=== PATIENT | male | born 1970 | race Caucasian/White ===

== ENCOUNTER 2021-05-09 19:19 | Emergency (ER) | payer OTHER, SELFPAY ==
--- NOTE | ~2021-05-09 | XR_ITS ---
EXAMINATION: XR FOOT, LEFT CLINICAL INFORMATION: Left foot injury and pain COMPARISON: None TECHNIQUE: AP, lateral, and oblique views of the left foot. FINDINGS: There is soft tissue swelling around the distal phalanx of the first toe with associated fracture with medial displacement of a large fragment. The bones and soft tissues are otherwise normal. No fracture. Alignment is anatomic. Joint spaces are maintained. XR/XR foot LT min 3V IMPRESSION: Fracture distal phalanx first toe.
[2021-05-09 21:34] VITALS: BP 129/89; PULSE 71; RESP 20; TEMP 36.8; O2SAT 98; BMI 36.0
--- NOTE | 2021-05-09 22:47 | ED.LOWEXIN ---
HPI - Extremity Injury (Lower) General Chief Complaint: Extremity Injury, Lower Stated Complaint: Left foot injury Time Seen by Provider: 05/09/21 22:19 Source: patient Mode of arrival: ambulatory History of Present Illness HPI Narrative: States radha blackmon fell on top of his left foot II p.m. has some swelling and bruising on top of the midfoot. Denies any injury to the ankle or toes. MD complaint: foot injury Onset (ago): minute(s) Injury: Left: foot Place: home Severity: mild Relieving factors: immobilization Exacerbating factors: palpation Context: direct blow Treatments prior to arrival: cold therapy Related Data Allergies Allergy/AdvReac Type Severity Reaction Status Date / Time No Known Allergies Allergy Unverified 04/29/20 15:17 [No Known Allergies*] Review of Systems Review of Systems: Constitutional: No Weight loss, No Fever, No Chills, No Night Sweats, No Fatigue, No Malaise ENT/Mouth: No Hearing loss, No Ear Pain, No Nasal Congestion, No Sinus Pain, No Hoarseness, No sore throat, No Rhinorrhea, No Swallowing Difficulty Eyes: No Eye Pain, No Swelling, No Redness, No Foreign Body, No Discharge, No Vision Changes Cardiovascular: No Chest Pain, No SOB, No Dyspnea on Exertion, No Orthopnea, No Edema, No Palpitations Respiratory: No Cough, No Sputum, No Wheezing, No Smoke Exposure, No Dyspnea Gastrointestinal: No Nausea, No Vomiting, No Diarrhea, No Constipation, No abdominal Pain, No Hematochezia, No Melena Genitourinary: no irregular bleeding, No Dysuria, No Urinary Frequency, No Hematuria, No Urinary Incontinence, No Urgency, No Flank Pain, No Urinary Flow Changes, No Hesitancy Musculoskeletal: No joint pain, No Myalgias, No Joint Swelling Skin: No Skin Lesions, No rash Neuro: No Weakness, No Numbness, No Paresthesias, No Loss of Consciousness, No Dizziness, No Headache Psych: No Social Issues Heme/Lymph: No Bruising, No Bleeding,No Lymphadenopathy Endocrine: No Polyuria, No Polydipsia, No Temperature Intolerance Yes all other systems are reviewed and are negative [facility] Social History Social History Advance Directives: No Advance Directives Information Provided: No Physical Exam Vital Signs: Vital Signs: Last Vital Signs Temp 98.2 F 05/09/21 21:34 Pulse 71 05/09/21 21:34 Resp 20 05/09/21 21:34 BP 129/89 05/09/21 21:34 Pulse Ox 98 05/09/21 21:34 Body Mass Index 36.0 Const: General: cooperative and healthy appearing; No acute distress or intoxicated appearing Nutritional Appearance: average body habitus Orientation/consciousness: patient oriented x3 HENMT: Head: Yes normal to inspection Ears: hearing grossly normal bilaterally Eyes: General: appearance normal, both eyes and all related structures Visual Willams: normal visual willams by confrontation Neck: Neck: Yes normal visual inspection, No positive Brudzinski's sign, No positive Kernig's sign and No tender Thyroid: Thyroid normal Chest: Chest palpation & inspection: normal inspection of the chest Resp: Effort & Inspection: normal respiratory effort Cardio: Jugular venous distension: no JVD GI: Inspection: Yes normal to inspection Percussion: Yes normal to percussion Auscultation: normal bowel sounds : General: Yes no CVA tenderness Back/Spine/Pelvis: Back: no CVA tenderness Skin: General skin exam: no rashes or lesions noted Neuro: General: patient oriented x3 Extrem: General: Yes normal to inspection Ankle/foot/toe images: 1. Slight ecchymosis and swelling to this area. Neurovascular intact. No open wound. No other injury to the ankle or digits. Course Course Course Narrative: Contusion type injury to the left foot, x-ray without evidence of acute fracture. No pain to the toes. Full range of motion ankle. Findings/plan reviewed. MDM - Extremity Injury (Lower) Medical Records Attestation: I reviewed the patient's medical records. Lab Data Attestation: I reviewed the patient's lab results. Imaging Data Foot x-ray: Radiologist's impression: [address] [address] XRay Report Signed with Addenda Patient: Jonathan Taveras MR#: [id number] : 1970 Acct:[id number] Age/Sex: 50 / M ADM Date: 05/09/21 Loc: HO.ED Attending Dr: Ordering Physician: Generic ED Physician Date of Service: 05/09/21 Procedure(s): XR foot LT min 3V Accession Number(s): [id number] cc: Generic ED Physician~ ADDENDUMAfter discussion with RIVERA Wilson, it became apparent that there was no trauma whatsoever to the big toe and no symptoms. The findings, therefore, must be related to a markedly abnormal toe nail. In the area of his symptoms over the fourth and fifth metatarsal where there is clinical swelling, no abnormality is detected. Addendum Dictated By: PAPITO UMANA MD Addendum Signed By: <Electronically signed by PAPITO UMANA MD in [place]> 05/09/212237 Addendum Cosigned By: DD/ TD/TT: / EXAMINATION: XR FOOT, LEFT CLINICAL INFORMATION: Left foot injury and pain? COMPARISON: None? TECHNIQUE: AP, lateral, and oblique views of the left foot. FINDINGS: There is soft tissue swelling around the distal phalanx of the first toe with associated fracture with medial displacement of a large fragment. The bones and soft tissues are otherwise normal. No fracture. Alignment is anatomic. Joint spaces are maintained.? XR/XR foot LT min 3V IMPRESSION: Fracture distal phalanx first toe. Dictated By: PAPITO UMANA MD Signed By: <Electronically signed by PAPITO UMANA MD in [place]> 05/09/212123 DD/ 99 TD/TT:? Palliative Care Specialist: Discharge Plan Discharge Clinical Impression: Contusion of foot Patient Disposition: Home, Self-Care Instructions: Foot Contusion (ED) Additional Instructions: Cold compress Elevate Acetaminophen or ibuprofen [id number] for pain discomfort per label instructions X-ray did not show any evidence of fracture Return if any concerns or worsening symptoms Thank you Referrals: Ace Santiago MD [Primary Care Provider] - 2 days Interventions: ED Discharge Assessment Last Done: 05/09/21 23:09 Discharge Date/Time: 05/09/21 23:10
== END 2021-05-09 23:10 | disposition home or self-care (01) ==
PROVIDERS: Emergency Provider Emergency Medicine; PCP Internal Medicine
DX: S90.32XA Contusion of left foot, initial encounter (principal); M79.672 Pain in left foot; Y29.XXXA Contact with blunt object, undetermined intent, initial encounter; Y93.9 Activity, unspecified; Y92.9 Unspecified place or not applicable; Y99.9 Unspecified external cause status
CPT/HCPCS: 73630; 99283

== ENCOUNTER 2022-04-28 11:28 | Outpatient (REF) | payer OTHER, SELFPAY ==
[2022-04-28 12:24] LABS: COVID-19 Test Negative (Negative); IDNOW Serial# 16C4AD1C
== END 2022-04-28 11:29 | disposition home or self-care (01) ==
LOC: HO.LAB 11:28
PROVIDERS: Visit Provider Internal Medicine
DX: Z20.822 Contact with and (suspected) exposure to COVID-19 (principal)
CPT/HCPCS: 87635; C9803

== ENCOUNTER 2022-05-11 09:09 | Outpatient (REF) | payer OTHER, SELFPAY ==
[2022-05-11 09:57] LABS: COVID-19 Test Negative (Negative); IDNOW Serial# 55D5AD1C
== END 2022-05-11 09:10 | disposition home or self-care (01) ==
LOC: HO.LAB 09:09
PROVIDERS: Visit Provider Internal Medicine
DX: Z20.822 Contact with and (suspected) exposure to COVID-19 (principal)
CPT/HCPCS: 87635; C9803

== ENCOUNTER 2022-07-18 12:38 | Outpatient (REF) | payer OTHER, SELFPAY ==
[2022-07-18 13:18] LABS: COVID-19 Test Negative (Negative); IDNOW Serial# BCCEAD1C
== END 2022-07-18 12:39 | disposition home or self-care (01) ==
LOC: HO.LAB 12:38
PROVIDERS: Visit Provider Internal Medicine
DX: Z20.822 Contact with and (suspected) exposure to COVID-19 (principal)
CPT/HCPCS: 87635; C9803

== ENCOUNTER 2022-07-20 07:07 | Outpatient (REF) | payer OTHER, SELFPAY ==
[2022-07-20 08:02] LABS: COVID-19 Test Positive (Negative); IDNOW Serial# BCCEAD1C
== END 2022-07-20 07:08 | disposition home or self-care (01) ==
LOC: HO.LAB 07:07
PROVIDERS: Visit Provider Internal Medicine
DX: Z20.822 Contact with and (suspected) exposure to COVID-19 (principal)
CPT/HCPCS: 87635; C9803

== ENCOUNTER 2022-11-09 07:22 | Outpatient (REF) | payer OTHER, SELFPAY ==
[2022-11-09 07:58] LABS: COVID-19 Test Negative (Negative); IDNOW Serial# 08D9AD1C
== END 2022-11-09 07:23 | disposition home or self-care (01) ==
LOC: HO.LAB 07:22
PROVIDERS: Visit Provider Internal Medicine
DX: Z20.822 Contact with and (suspected) exposure to COVID-19 (principal)
CPT/HCPCS: 87635; C9803